=== PATIENT | male | born 1945 | race Caucasian/White ===

== ENCOUNTER 2023-09-27 14:48 | Inpatient (IN) ==
[2023-09-27 17:05] LABS: ABS Basophils 0.1 10^3/uL (0.0-0.1); ABS Lymphocytes 1.3 10^3/uL (1.0-4.8); ABS Monocytes 0.6 10^3/uL (0.0-1.1); ABS Neutrophils 5.2 10^3/uL (1.5-7.6); ABS Nucleated RBC 0.01 10^3/ul; Eosinophil % 12.4 %; Hemoglobin 14.2 g/dL (13.2-16.3); Lymphocyte % 15.6 %; Mean Corpuscular Hemoglobin 30.7 pg (27-33); Mean Corpuscular Hgb Conc 33.9 g/dL (31-36); Mean Corpuscular Volume 90.5 fL (80-97); Nucleated Red Blood Cells % 0.1 %/100WBC (0.0-0.8); Platelet Count 290 10^3/uL (150-450); Red Blood Count 4.64 10^6/uL (4.06-5.63); White Blood Count 8.2 10^3/uL (3.6-10.2)
[2023-09-27 17:13] LABS: Urine Appearance Clear; Urine Bilirubin Negative (Negative); Urine Blood Negative (Negative); Urine Color Light-Yellow; Urine Glucose Negative (Negative); Urine Ketones Negative (Negative); Urine Nitrite Negative (Negative); Urine Protein Negative (Negative); Urine Specific Gravity 1.009 (1.002-1.030); Urine Urobilinogen Negative (Negative); Urine pH 7.5 (5.0-8.0)
[2023-09-27 17:27] LABS: ALT 15 U/L (7-52); AST 14 U/L (13-39); Acetaminophen < 15 mcg/mL; Albumin 3.9 g/dL (3.2-5.2); Albumin/Globulin Ratio 1.7 (1-3); Alcohol, S < 13 mg/dL (<13); Alkaline Phosphatase 136 U/L (35-149); Anion Gap 4 mmol/L (2-16); Blood Urea Nitrogen 15 mg/dL (6-24); CO2 Carbon Dioxide 28 mmol/L (22-32); Calcium 9.2 mg/dL (8.6-10.3); Chloride 106 mmol/L (101-111); Globulin 2.3 g/dL (2-4); Glucose 97 mg/dL (70-100); Potassium 3.7 mmol/L (3.5-5.0); Salicylate < 2.50 mg/dL (<30); Sodium 138 mmol/L (135-145); Total Bilirubin 0.5 mg/dL (0.2-1.0); Total Protein 6.2 g/dL (6.4-8.9)
[2023-09-27 17:41] LABS: TSH Ultra Thyroid Stim Horm 1.35 mcIU/mL (0.34-5.60)
[2023-09-27 17:43] LABS: Urine Benzodiazepine Screen None Detected (None Detect); Urine Cannabinoids Screen None Detected (None Detect); Urine Opiates Screen None Detected (None Detect)
[2023-09-27 18:02] LABS: Creatinine, Serum 0.91 mg/dL (0.67-1.17); eGFR CKD-EPI 87.3 (>60)
[2023-09-28] MEDS: DULoxetine DR 60 mg CAP PO ONE (10:29)
[2023-09-28] MEDS: Diclofenac Sod EC 25 mg TAB PO ONE (13:14)
[2023-09-28] MEDS ORDERED: Al Hydrox/Mg Hydrox/Simet LIQ 30 ML UDC PO PRN (13:20)
[2023-09-28] MEDS ORDERED: EPINEPHrine Anaphylaxis SYR CERTADOSE SYR KIT IM PRN (13:23)
[2023-09-28] MEDS ORDERED: Diclofenac Sod EC 25 mg TAB PO PRN (13:23)
[2023-09-29] MEDS: Vitamin THERAPEUTIC TAB PO SCH (08:32)
[2023-09-29] MEDS: DULoxetine DR 30 mg CAP PO SCH (08:32)
[2023-09-29] MEDS: CMC:FLUTICAS/UMECLI/VILANT 200-62.5-25 MDI (NF) INH SCH (08:33)
[2023-09-29 08:45] LABS: HDL Cholesterol 47.5 mg/dL
[2023-10-02 09:34] VITALS: BP 146/96
== END 2023-10-02 11:20 | disposition home or self-care (01) | DRG 885 ==
LOC: ED 14:48 → BSU 09-28 13:20
PROVIDERS: ADMIT Psychiatry & Neurology Psychiatry; ATTEND Student in an Organized Health Care Education/Training Program